=== PATIENT | female | born 1980 | race Caucasian/White ===

== ENCOUNTER 2018-08-04 05:21 | Emergency (ER) | payer SELFPAY ==
[~2018-08-04] VITALS: Ht 172.7 cm; Wt 126.7 kg
--- NOTE | 2018-08-04 05:24 | ED.ADGEN ---
Adult General Chief Complaint Chief Complaint "..I used someone else eye solution for my contacts.. and now my eyes are burning.."...".. I was staying over at my boy friend.. and I had my contacts in... so I took them out... and put them in two shot glasses... with his eye solution... but the next morning when I got up and went to put my contacts in they made my eyes burn... I eventually took them out.. because the september my eyes burn.. but this morning my eyes are still irritated.. " HPI HPI Patient is a 37 year old female who presents with above hx and complaints of conjunctivitis secondary to use of boyfriends eye solution. Patient has obvious chemical conjunctivitis both eyes. Right eye has more conjunctivitis.. Mild fluorescein uptake in both eyes. There is some mild limbus injection. There is some mild photophobia. No adenopathy appreciated . Extraocular muscles intact. Patient does not remember her last tetanus. History of immunosuppression. No history of travel. No specific ill contacts. Review of Systems Review of Systems Constitutional: Denies fever or chills [] Eyes: Complaints of my bilateral conjunctivitis and eye discomfort, HENT: Denies nasal congestion or sore throat [] Respiratory: Denies cough or shortness of breath [] Cardiovascular: No additional information not addressed in HPI [] GI: Denies abdominal pain, nausea, vomiting, bloody stools or diarrhea [] : Denies dysuria or hematuria [] Musculoskeletal: Denies back pain or joint pain [] Integument: Denies rash or skin lesions [] Neurologic: Denies headache, focal weakness or sensory changes [] Endocrine: Denies polyuria or polydipsia [] All other systems were reviewed and found to be within normal limits, except as documented in this note. Family History Family History Noncontributory Current Medications Current Medications Current Medications Medications (Trade) Dose Ordered Sig/Hugh Start Time Stop Time Status Last Admin Dose Admin Cyclopentolate HCl (Cyclogyl) 1 drop 1X ONCE 08/04/18 06:15 08/04/18 06:17 DC 08/04/18 06:11 1 DROP Diphtheria/ Tetanus/Acell Pertussis (Boostrix) 0.5 ml ONCE ONCE 08/04/18 06:00 08/04/18 06:01 DC 08/04/18 06:03 0.5 ML Erythromycin (Romycin) 0.25 inch 1X ONCE 08/04/18 06:00 08/04/18 06:01 DC 08/04/18 06:00 0.25 INCH Fluorescein Sodium (Ful-Jerica 1mg) 1 strip 1X ONCE 08/04/18 06:00 08/04/18 06:01 DC 08/04/18 06:01 1 STRIP Hydrocodone Bitartrate/ Ibuprofen (Vicoprofen 7.5-200) 2 tab 1X ONCE 08/04/18 06:00 08/04/18 06:01 DC 08/04/18 06:04 2 TAB Ketorolac Tromethamine (Acular) 1 drop 1X ONCE 08/04/18 06:00 08/04/18 06:01 DC 08/04/18 06:00 1 DROP Ketotifen Fumarate (Zaditor) 50 drop STK-MED ONCE 08/04/18 05:39 08/04/18 05:40 DC Tetracaine HCl (Tetracaine) 1 drop 1X ONCE 08/04/18 06:00 08/04/18 06:01 DC 08/04/18 06:00 1 DROP Allergies Allergies Allergies Coded Allergies Type Severity Reaction Last Updated Verified No Known Drug Allergies 08/04/18 No Physical Exam Physical Exam Constitutional: Well developed, well nourished mild distress, non-toxic appearance. [] HENT: Normocephalic, atraumatic, bilateral external ears normal, oropharynx moist, no oral exudates, nose normal. [] Eyes: PERRLA, EOMI, conjunctivitis as per history of present illness Neck: Normal range of motion, no tenderness, supple, no stridor. [] Cardiovascular:Heart rate regular rhythm, no murmur [] Lungs & Thorax: Bilateral breath sounds at apexes scattered wheezes on auscultation [] Abdomen: Bowel sounds normal, soft, no tenderness, no masses, no pulsatile masses. Obese Skin: Warm, dry, no erythema, no rash. [] Back: No tenderness, no CVA tenderness. [] Extremities: No tenderness, no cyanosis, no clubbing, ROM intact, no edema. [] Neurologic: Alert and oriented X 3, normal motor function, normal sensory function, no focal deficits noted. [] Psychologic: Affect anxious, judgement normal, mood normal. [] Current Patient Data Vital Signs Vital Signs Date Time Temp Pulse Resp B/P (MAP) Pulse Ox O2 Delivery O2 Flow Rate FiO2 08/04/18 05:30 97.8 56 20 97 Room Air EKG EKG [] Radiology/Procedures Radiology/Procedures [] Course & Med Decision Making Course & Med Decision Making Pertinent Labs and Imaging studies reviewed. (See chart for details) Patient must follow-up with ophthalmology. Patient to take Tylenol and ibuprofen for pain. Patient use a small amount of erythromycin ointment to both eyes 4 times a day. Patient does not use a contaminated contacts anymore. Patient return if any concerns with kit redness or pain. Must follow-up. [] Final Impression Final Impression 1. Conjunctivitis-chemical[] Dragon Disclaimer Dragon Disclaimer This electronic medical record was generated, in whole or in part, using a voice recognition dictation system. Discharge Summary Visit Information Final Diagnosis Problems Medical Problems: (1) Chemical conjunctivitis of both eyes Status: Acute Brief Hospital Course Allergies Allergies Coded Allergies Type Severity Reaction Last Updated Verified No Known Drug Allergies 08/04/18 No Vital Signs Vital Signs Date Time Temp Pulse Resp B/P (MAP) Pulse Ox O2 Delivery O2 Flow Rate FiO2 08/04/18 05:30 97.8 56 20 97 Room Air Brief Hospital Course Ms. Lozano is a 37 old female who presented with chemical conjunctivitis. Discharge Information Condition at Discharge: Improved, Stable Disposition/Orders: D/C to Home Dischare Medications Current Medications Tetracaine HCl (Tetracaine) 40 drop STK-MED ONCE .ROUTE ; Start 08/04/18 at 05: 38; Stop 08/04/18 at 05:39; Status DC Erythromycin (Romycin) 1 inch STK-MED ONCE .ROUTE ; Start 08/04/18 at 05:38; Stop 08/04/18 at 05:39; Status DC Fluorescein Sodium (Ful-Jerica 1mg) 1 strip STK-MED ONCE .ROUTE ; Start 08/04/18 at 05:38; Stop 08/04/18 at 05:39; Status DC Ketotifen Fumarate (Zaditor) 50 drop STK-MED ONCE .ROUTE ; Start 08/04/18 at 05: 39; Stop 08/04/18 at 05:40; Status DC Diphtheria/ Tetanus/Acell Pertussis (Boostrix) 0.5 ml STK-MED ONCE VAX IM ; Start 08/04/18 at 05:40; Stop 08/04/18 at 05:41; Status DC Fluorescein Sodium (Ful-Jerica 1mg) 1 strip 1X ONCE OD Last administered on at 06:01; Admin Dose 1 STRIP; Start 08/04/18 at 06:00; Stop 08/04/18 at 06:01 ; Status DC Tetracaine HCl (Tetracaine) 1 drop 1X ONCE OD Last administered on 08/04/18at 06:00; Admin Dose 1 DROP; Start 08/04/18 at 06:00; Stop 08/04/18 at 06:01; Status DC Ketorolac Tromethamine (Acular) 1 drop 1X ONCE OD Last administered on at 06:00; Admin Dose 1 DROP; Start 08/04/18 at 06:00; Stop 08/04/18 at 06:01; Status DC Erythromycin (Romycin) 0.25 inch 1X ONCE OD Last administered on 08/04/18at 06: 00; Admin Dose 0.25 INCH; Start 08/04/18 at 06:00; Stop 08/04/18 at 06:01; Status DC Diphtheria/ Tetanus/Acell Pertussis (Boostrix) 0.5 ml ONCE ONCE VAX IM Last administered on 08/04/18at 06:03; Admin Dose 0.5 ML; Start 08/04/18 at 06:00; Stop 08/04/18 at 06:01; Status DC Hydrocodone Bitartrate/ Ibuprofen (Vicoprofen 7.5-200) 2 tab 1X ONCE PO Last administered on 08/04/18at 06:04; Admin Dose 2 TAB; Start 08/04/18 at 06:00; Stop 08/04/18 at 06:01; Status DC Cyclopentolate HCl (Cyclogyl) 1 drop STK-MED ONCE .ROUTE ; Start 08/04/18 at 06: 06; Stop 08/04/18 at 06:07; Status DC Cyclopentolate HCl (Cyclogyl) 1 drop 1X ONCE OU Last administered on at 06:11; Admin Dose 1 DROP; Start 08/04/18 at 06:15; Stop 08/04/18 at 06:17; Status DC Active Scripts Active Hydrocodone-Ibuprofen 7.5-200 (Hydrocodone/Ibuprofen) 1 Each Tablet 1 Tab PO PRN Q6HRS PRN Dragon Disclaimer This chart was dictated in whole or in part using Voice Recognition software in a busy, high-work load, and often noisy Emergency Department environment. It may contain unintended and wholly unrecognized errors or omissions. VAMSHI GARCIA MD Aug 04, 2018 05:24
[2018-08-04 05:30] VITALS: BP 137/84
[2018-08-04] MEDS ORDERED: TETRACAINE 0.5% OPHTH SOLUTION 4ML BOTTLE. ONE (05:38)
[2018-08-04] MEDS ORDERED: ERYTHROMYCIN 0.5% OPHTH OINTMENT 1GM TUBE. ONE (05:38)
[2018-08-04] MEDS ORDERED: FLUORESCEIN 1MG EYE STRIP. ONE (05:38)
[2018-08-04] MEDS ORDERED: KETOTIFEN FUMARATE 0.025% OPHT SOLUTION BOTTLE. ONE (05:39)
[2018-08-04] MEDS ORDERED: DIPHTH,PERTUSS(ACELL),TET TOX 0.5 ML DISP.SYRIN. VAX IM ONE ×2 (05:40→06:00)
[2018-08-04] MEDS ORDERED: TETRACAINE 0.5% OPHTH SOLUTION 4ML BOTTLE. OD ONE (06:00)
[2018-08-04] MEDS ORDERED: HYDROcodon/IBUPROFEN 7.5/200MG 1 TAB TABLET PO ONE (06:00)
[2018-08-04] MEDS ORDERED: KETOROLAC TROMETHAMINE 0.5% OPHTH SOLUTION 3ML BOTTLE. OD ONE (06:00)
[2018-08-04] MEDS ORDERED: FLUORESCEIN 1MG EYE STRIP. OD ONE (06:00)
[2018-08-04] MEDS ORDERED: ERYTHROMYCIN 0.5% OPHTH OINTMENT 1GM TUBE. OD ONE (06:00)
[2018-08-04] MEDS ORDERED: CYCLOPENTOLATE 1% OPTH SOLUTION 2ML BOTTLE. ONE (06:06)
[2018-08-04] MEDS ORDERED: CYCLOPENTOLATE 1% OPTH SOLUTION 2ML BOTTLE. OU ONE (06:15)
[2018-08-04] MEDS ORDERED: HYDR-1179 PO (06:19)
== END 2018-08-04 06:34 | disposition home or self-care (01) ==
LOC: ER 05:21
DX: H10.213 Acute toxic conjunctivitis, bilateral (principal); T49.5X5A Adverse effect of ophthalmological drugs and preparations, initial encounter; Y92.89 Other specified places as the place of occurrence of the external cause
CPT/HCPCS: 90471; 90715; 99283

== ENCOUNTER 2021-03-22 18:15 | Emergency (ER) | payer BC ==
[~2021-03-22] VITALS: Ht 172.7 cm; Wt 125.0 kg
[~2021-03-22 18:15] MED LIST: HYDR-1179 PO
[2021-03-22 18:28] VITALS: BP 180/97
[2021-03-22] MEDS ORDERED: HYDR-2155 PO (18:49)
--- NOTE | 2021-03-22 18:50 | PHYS DOC ---
Past History Past Medical History: Hypertension, Migraines (MANINDER FITZGERALD APRN) Past Surgical History: , Other Additional Past Surgical Histo: ectopic , (MANINDER FITZGERALD APRN) Alcohol Use: Occasionally Drug Use: None (MANINDER FITZGERALD APRN) General Adult EDM: Chief Complaint: DENTAL PROBLEM HPI: HPI: Patient is a 40-year-old female presents with right-sided, upper dental pain. Patient states that she was seen by her dentist on Sunday and given a dental block. Patient was also started on amoxicillin. Patient reports she has been taking Motrin and Tylenol at home with little relief. "" To follow-up with my dentist on ". "Ibuprofen and Tylenol helping during the day but at night I cannot sleep". Afebrile. No facial swelling. History of hypertension. (MANINDER FITZGERALD APRN) Review of Systems: Review of Systems: ROS At least 10 ROS systems have been reviewed and are negative except as documented in the HPI. General: Negative except as outlined in HPI above. Skin: Negative except as outlined in HPI above. HEENT: Negative except as outlined in HPI above. Neck: Negative except as outlined in HPI above. Respiratory: Negative except as outlined in HPI above.. Cardiovascular: Negative except as outlined in HPI above. Abdomen: Negative except as outlined in HPI above. : Negative except as outlined in HPI above. Back/MSK: Negative except as outlined in HPI above. Neuro: Negative except as outlined in HPI above. Psych: Negative except as outlined in HPI above. (MANINDER FITZGERALD APRN) Allergies: Allergies: Allergies Coded Allergies Type Severity Reaction Last Updated Verified No Known Drug Allergies 08/04/18 No (MANINDER FITZGERALD APRN) Physical Exam: PE: Constitutional: Well developed, well nourished, no acute distress, non-toxic appearance. [] HENT: Normocephalic, atraumatic, bilateral external ears normal, oropharynx moist, no oral exudates, nose normal,infection to maxillary 2-3,right Eyes: PERRLA, EOMI, conjunctiva normal, no discharge. [] Neck: Normal range of motion, no tenderness, supple, no stridor. [] Cardiovascular:Heart rate regular rhythm, no murmur [] Lungs & Thorax: Bilateral breath sounds clear to auscultation [] Abdomen: Bowel sounds normal, soft, no tenderness, no masses, no pulsatile masses. [] Skin: Warm, dry, no erythema, no rash. [] Back: No tenderness, no CVA tenderness. [] Extremities: No tenderness, no cyanosis, no clubbing, ROM intact, no edema. [] Neurologic: Alert and oriented X 3, normal motor function, normal sensory function, no focal deficits noted. [] Psychologic: Affect normal, judgement normal, mood normal. [] (MANINDER FITZGERALD APRN) Current Patient Data: Vital Signs: Vital Signs Date Time Temp Pulse Resp B/P (MAP) Pulse Ox O2 Delivery O2 Flow Rate FiO2 03/22/21 18:28 97.8 86 18 180/97 (124) 98 Room Air (MANINDER FITZGERALD APRN) EKG: EKG: [] (MANINDER FITZGERALD APRN) Radiology/Procedures: Radiology/Procedures: [] (MANINDER FITZGERALD APRN) Heart Score: C/O Chest Pain: No Risk Factors: Risk Factors: DM, Current or recent (<one month) smoker, HTN, HLP, family history of CAD, obesity. Risk Scores: Score 0 - 3: 2.5% MACE over next 6 weeks - Discharge Home Score 4 - 6: 20.3% MACE over next 6 weeks - Admit for Clinical Observation Score 7 - 10: 72.7% MACE over next 6 weeks - Early Invasive Strategies (MANINDER FITZGERALD APRN) Course & Med Decision Making: Course & Med Decision Making Pertinent Labs and Imaging studies reviewed. (See chart for details) [] 39-year-old female presents with right-sided, maxillary, tooth #2 and 3 infection. Patient was started on amoxicillin and given a dental block on Sunday. Pain is controlled with Motrin and Tylenol during the day. Patient is reporting difficulty sleeping at night due to throbbing, tooth pain. Patient is supposed to be following up with dentist on for further management. Patient given hydrocodone while in the emergency room and sent home with prescription until she can follow-up on . Advised patient to continue taking ibuprofen for pain. Discussed patient calling dentist tomorrow to see if she can get an earlier due to pain. Continue taking antibiotic as directed. Patient is hemodynamically stable and appreciative. (MANINDER FITZGERALD APRN) Sonny Disclaimer: Sonny Disclaimer: This electronic medical record was generated, in whole or in part, using a voice recognition dictation system. (MANINDER FITZGERALD APRN) Departure Departure: Impression: Primary Impression: Pain, dental Disposition: HOME / SELF CARE / HOMELESS Condition: STABLE Referrals: JARET ACEVEDO MD (PCP) Patient Instructions: Dental Pain, Dmar-[id number] Additional Instructions: You were seen in the emergency room for dental pain. You were given hydrocodone in the emergency room. I am sending you home with a prescription for pain medication until you can follow-up with your dentist on . Continue taki ng your amoxicillin as directed. Motrin for breakthrough pain. Call your dentist in the morning to see if you can have a follow-up appointment sooner than originally scheduled. EMERGENCY DEPARTMENT GENERAL DISCHARGE INSTRUCTIONS Thank you for coming to [facility] (ED) today and trusting us with you care. We trust that you had a positivie experience in our Emergency Department. If you wish to speak to the department management, you may call the director at [phone]. YOUR FOLLOW UP INSTRUCTIONS ARE FOLLOWS: 1. Do you have a private Doctor? If you do not have a private doctor, please ask for a resource list of physicians or clinics that may be able to assist you with follow up care. 2. The Emergency Physician has interpreted your x-rays. The X-Ray specialist will also review them. If there is a change in the findings, you will be notified in 48 hours when at all possible. 3. A lab test or culture has been done, your results will be reviewed and you will be notified if you need a change in treatment. ADDITIONAL INSTRUCTIONS AND INFORMATION: 1. Your care today has been supervised by a physician who is specially trained in emergency care. Many problems require more than one evaluation for a complete diagnosis and treatment. We recommend that you schedule your follow up appointment as recommended to ensure complete treatment of you illness or injury. If you are unable to obtain follow up care and continue to have a problem, or if your condition worsens, we recommend that you return to the ED. 2. We are not able to safely determine your condition over the phone nor are we able to give sound medical advice over the phone. For these safety reasons, if you call for medical advice we will ask you to come to the ED for further evaluation. 3. If you have any questions regarding these discharge instructions please call the ED at [phone]. SAFETY INFORMATION: In the interest of safety, wellness, and injury prevention; we encourage you to wear your sealbelt, if you smoke; quite smoking, and we encourage family to use a protective helmet for bicycling and other sporting events that present an increased risk for head injury. IF YOUR SYMPTOMS WORSEN OR NEW SYMPTOMS DEVELOP, OR YOU HAVE CONCERNS ABOUT YOUR CONDITION; OR IF YOUR CONDITION WORSENS WHILE YOU ARE WAITING FOR YOUR FOLLOW UP APPOINTMENT; EITHER CONTACT YOUR PRIMARY CARE DOCTOR, THE PHYSICIAN WHOSE NAME AND NUMBER YOU WERE GIVEN, OR RETURN TO THE ED IMMEDIATELY. Scripts Hydrocodone Bit/Acetaminophen (HYDROCODONE-APAP 5-325 ) 1 Each Tablet 1-2 TAB PO PRN Q6HRS PRN for PAIN for 2 Days, #6 TAB 0 Refills Prov: MANINDER FITZGERALD APRN 03/22/21 Attending Signature Attending Signature I have reviewed the PA/[employer]CR[employer]ER's note and plan of care. I was available for consultation as needed during the patient's visit in the emergency department. I agree with the clinical impression, plan, and disposition. (KATHY BAPTISTE DO) MANINDER FITZGERALD APRN Mar 22, 2021 18:50 KATHY BAPTISTE DO Mar 23, 2021 02:01
== END 2021-03-22 18:55 | disposition home or self-care (01) ==
LOC: ER 18:15
DX: K08.89 Other specified disorders of teeth and supporting structures (principal); I10 Essential (primary) hypertension; G43.909 Migraine, unspecified, not intractable, without status migrainosus
CPT/HCPCS: 99283